=== PATIENT | male | born 1940 | race Caucasian/White ===

== ENCOUNTER → 2018-09-22 19:58 | Outpatient (REF) | payer MEDICARE, MEDICAID, SELFPAY | LOC: LAB 19:58 | PROVIDERS: Family Provider Family Medicine Geriatric Medicine; PCP Family Medicine Geriatric Medicine; Visit Provider Family Medicine Geriatric Medicine | DX: D07.5 Carcinoma in situ of prostate (principal) | CPT/HCPCS: 36415; 84153 ==

== ENCOUNTER → 2018-10-07 09:55 | Outpatient (CLI) | payer MEDICARE, MEDICAID, SELFPAY ==
--- NOTE | 2018-10-07 | DI.NM.S_ITS ---
PROCEDURE: [place] BONE SCAN WHOLE BODY RADIOPHARMACEUTICAL: 20.5 mCi Tc-99m MDP IV. INDICATIONS: PROSTATE CANCER TECHNIQUE: Delayed whole-body scintigrams were obtained approximately 3-4 hours after intravenous injection of radiotracer. Anterior and posterior views were acquired from vertex to feet. Additional left and right oblique views of the pelvis were obtained. COMPARISON: [place], [place], BONE SCAN WHOLE BODY, 09/03/2012, 12:44. FINDINGS: As was previously the case on the comparison nuclear medicine bone scan from 09/03/12 there is asymmetric increased isotope deposition at the anterior right mandible, diminished from the prior study. Isotope uptake in the shoulder has progressed, and now is more prominent at the left acromioclavicular joint and has appreciably worsened also at the right humeral head, glenohumeral joint, and the acromioclavicular joint on the right. None of these areas show evidence of definite osseous metastatic disease as the underlying cause. More inferiorly through the chest and into the abdomen and pelvis mild degenerative change appears present at the mid and lower thirds of the lumbosacral spine, mildly progressed, but without evidence of osseous metastatic disease as the underlying cause. Through the pelvis mild bilateral sacroiliac degenerative change is again seen, but no definite prostate carcinoma metastasis is found. IMPRESSION: Degenerative changes as discussed have progressed from 2012. No osseous metastatic disease is found. Mild interval improvement in what appears to be odontogenic isotope uptake at the right anterior mandible. Dictated by: Tito Elam M.D. on 10/07/2018 at 18:09 Approved by: Tito Elam M.D. on 10/07/2018 at 18:13
== END ==
PROVIDERS: Family Provider Family Medicine Geriatric Medicine; PCP Family Medicine Geriatric Medicine; Visit Provider Internal Medicine
DX: C61 Malignant neoplasm of prostate (principal); M47.817 Spondylosis without myelopathy or radiculopathy, lumbosacral region; M47.818 Spondylosis without myelopathy or radiculopathy, sacral and sacrococcygeal region
CPT/HCPCS: 78306; A9503

== ENCOUNTER → 2018-11-06 18:45 | Outpatient (REF) | payer MEDICARE, MEDICAID, SELFPAY ==
[2018-11-06 19:27] LABS: Alanine Aminotransferase 20 IU/L (21-72); Albumin 3.6 g/dL (3.5-5.0); Albumin Globulin Ratio 1.3 (1.0-2.8); Alkaline Phosphatase 55 U/L (38-126); Aspartate Aminotransferase 21 IU/L (17-59); BUN Creatinine Ratio 15.6 (6-22); Bilirubin Total 0.3 mg/dL (0.2-1.3); Blood Urea Nitrogen 14 mg/dL (9-20); Calcium 9.1 mg/dL (8.4-10.2); Carbon Dioxide 27 mmol/L (22-32); Chloride 101 mmol/L (98-107); Estimated Glomerular Filt Rate > 60.0 mL/min (>60); Globulin 2.8 g/dL (1.7-4.1); Glucose 107 mg/dL (80-110); HEMOLYSIS < 15 (0-50); Potassium 4.3 mmol/L (3.4-5.1); Sodium 137 mmol/L (137-145); Total Protein 6.4 g/dL (6.3-8.2)
[2018-11-06 19:56] LABS: Prostate Specific Antigen 28.9 ng/mL (0.10-4.00)
== END ==
LOC: LAB 18:45
PROVIDERS: Visit Provider Family Medicine Geriatric Medicine
DX: C61 Malignant neoplasm of prostate (principal)
CPT/HCPCS: 36415; 80053; 84153